=== PATIENT | female | born 1995 | race Hispanic/Latino ===

== ENCOUNTER 2021-08-10 12:17 | Outpatient (CLI) | payer MEDICAID ==
[2021-08-10] MEDS ORDERED: TERBUTALINE 1 MG/1 ML INJ ONE (14:53)
[2021-08-10] MEDS ORDERED: LACTATED RINGERS 1,000 ML ONE ×2 (14:53→17:02)
[2021-08-10] MEDS: TERBUTALINE 1 MG/1 ML INJ SUB-Q SCH ×3 (15:08→18:27)
[2021-08-10 15:34] LABS: Bacteria,Urine 1+ /HPF (Negative); Bilirubin,Urine NEG (Negative); Blood,Urine NEG (Negative); Color,Urine Yellow (Yellow); Mucus,Urine FEW /HPF; Protein,Urine <15 mg/dL mg/dL (Negative); Urobilinogen,Urine < 2.0 mg/dL (<2.0)
[2021-08-10] MEDS ORDERED: cefTRIAXone/NS 1 GM/50 ML 1 GM/50 ML BAG IV ONE (15:50)
[2021-08-10] MEDS ORDERED: ACETAMINOPHEN 500 MG TAB PO ONE (17:35)
--- NOTE | 2021-08-10 17:44 | Ultrasound Report ---
ULTRASOUND OBSTETRIC LIMITED INDICATION / CLINICAL INFORMATION: Cervical length. Clinical Gestational Age (GA) in weeks, days: 23, 5 TECHNIQUE: Transabdominal. Translabial imaging. COMPARISON: None available. FINDINGS: HEART RATE (beats per minute): Twin A = 152; twin B = 177 PRESENTATION: Cephalic. ADDITIONAL FINDINGS: Cervical length is 4.3 cm. IMPRESSION: 1. Cervical length is 4.3 cm. Signer Name: Praanv Shen MD Signed: 08/10/2021 5:40 PM Workstation Name: [id number]
[2021-08-10 18:10] VITALS: BP 116/66
== END 2021-08-10 21:50 | disposition home or self-care (01) ==
LOC: TRG 12:17 → APU 12:18 → TRG 21:50
PROVIDERS: ATTEND Obstetrics & Gynecology
DX: Z34.92 Encounter for supervision of normal pregnancy, unspecified, second trimester (principal); Z3A.23 23 weeks gestation of pregnancy
CPT/HCPCS: 76815; 81001; J0696; J3105; J7120; J3490

== ENCOUNTER 2021-09-28 12:36 | Outpatient (CLI) | payer MEDICAID ==
[2021-09-28 13:22] VITALS: BP 132/68
[2021-09-28 14:52] LABS: Bilirubin,Urine NEG (Negative); Blood,Urine NEG (Negative); Color,Urine Yellow (Yellow); Mucus,Urine FEW /HPF; Protein,Urine <15 mg/dL mg/dL (Negative); Urobilinogen,Urine < 2.0 mg/dL (<2.0)
[2021-09-28] MEDS ORDERED: LACTATED RINGERS 500 ML IV ONE (14:54)
[2021-09-28] MEDS ORDERED: LIDOCAINE (2%) 20 MG/1 ML VIAL 20 ML MDV INFILTRATI ONE (15:58)
[2021-09-28] MEDS ORDERED: LIDOCAINE-MPF (1%) 10 MG/1 ML VIAL 5 ML INFILTRATI ONE (16:17)
== END 2021-09-28 16:55 | disposition home or self-care (01) ==
LOC: TRG 12:36 → APU 12:37 → TRG 16:55
PROVIDERS: ATTEND Obstetrics & Gynecology
DX: O26.893 Other specified pregnancy related conditions, third trimester (principal); R10.9 Unspecified abdominal pain; M54.50 Low back pain, unspecified; Z3A.30 30 weeks gestation of pregnancy
CPT/HCPCS: 59025; 81001; J0696; J3490

== ENCOUNTER 2021-11-05 12:43 | Outpatient (CLI) | payer MEDICAID ==
[2021-11-05 14:47] VITALS: BP 118/70
[2021-11-05] MEDS ORDERED: LACTATED RINGERS 2,000 ML ONE (15:30)
[2021-11-05] MEDS ORDERED: BICITRA ORAL LIQD 30ML PO ONE (15:53)
[2021-11-05] MEDS ORDERED: FAMOTIDINE 20 MG/2 ML INJ IV ONE (15:53)
[2021-11-05] MEDS ORDERED: METOCLOPRAMIDE 10 MG/2 ML INJ IV ONE (15:53)
[2021-11-05] MEDS ORDERED: LACTATED RINGERS 1,000 ML IV SCH ×2 (16:00→18:30)
[2021-11-05] MEDS ORDERED: OXYTOCIN DRIP 30 UNITS/500 ML BAG IV SCH (16:00)
[2021-11-05] MEDS ORDERED: ceFAZolin/Water 2 GM/20 ML 2 GM/20 ML SYRINGE IV NR (16:00)
[2021-11-05 16:53] LABS: Basophils % (Auto) 0.4 % (0.0-1.8); Eosinophils # (Auto) 0.1 K/mm3 (0.0-0.4); Eosinophils % (Auto) 1.1 % (0.0-4.3); Hematocrit 37.4 % (30.3-42.9); Hemoglobin 11.8 gm/dl (10.1-14.3); Lymphocytes # (Auto) 1.9 K/mm3 (1.2-5.4); Lymphocytes % (Auto) 21.3 % (13.4-35.0); Mean Corpuscular HGB Conc 32 % (30-34); Mean Corpuscular Volume 83 fl (79-97); Monocytes # (Auto) 0.7 K/mm3 (0.0-0.8); Monocytes % (Auto) 7.6 % (0.0-7.3); Platelet Count 262 K/mm3 (140-440); Red Blood Count 4.52 M/mm3 (3.65-5.03); Red Cell Distribution Width 14.9 % (13.2-15.2)
[2021-11-05] MEDS ORDERED: MORPHINE 2 MG/1 ML INJ IV ONE (18:19)
[2021-11-05] MEDS ORDERED: ACETAMINOPHEN 325 MG TAB PO PRN (18:21)
[2021-11-05] MEDS ORDERED: ONDANSETRON 4 MG/2 ML INJ IV PRN (18:21)
[2021-11-05] MEDS ORDERED: DOCUSATE SODIUM 100 MG CAP PO PRN (18:21)
[2021-11-05] MEDS ORDERED: SIMETHICONE 80 MG CHEW TAB PO PRN (18:21)
[2021-11-05] MEDS ORDERED: SODIUM CHLORIDE NASAL SPRAY 44ML NS PRN (18:21)
--- NOTE | 2021-11-05 18:46 | History and Physical Report ---
Past History - Obstetrical History : 5 Medications and Allergies Allergies Allergy/AdvReac Type Severity Reaction Status Date / Time Latex, Natural Rubber Allergy Rash Verified 11/26/15 12:26 Home Medications Medication Instructions Recorded Confirmed Last Taken Type No Known Home Medications [No 11/26/15 11/26/15 Unknown History Reported Home Medications] Active Meds: Active Medications Acetaminophen (Acetaminophen 325 Mg Tab) 650 mg PO Q4H PRN PRN Reason: Pain MILD(1-3)/Fever >100.5/BROWN Betamethasone Acet/Betameth SodPhos (Betamet Acet/Betamet Na Ph 6 Mg/Ml Inj 5 Ml Mdv) 12 mg IM Q24H JAH Stop: 11/07/21 10:01 Docusate Sodium (Docusate Sodium 100 Mg Cap) 100 mg PO Q12H PRN PRN Reason: Constipation Lactated Ringer's (Lactated Ringers) 1,000 mls @ 2,250 mls/hr IV PREOP JAH Stop: 11/06/21 16:27 Oxytocin/Sodium Chloride (Pitocin/Ns 30 Unit/500ml) 30 units in 500 mls @ 0 ml s/hr IV TITR JAH; Protocol Cefazolin Sodium (Ancef/Sterile Water 2 Gm/20 Ml) 2 gm in 20 mls @ 80 mls/hr IV PREOP NR; Protocol Stop: 11/06/21 15:59 Lactated Ringer's (Lactated Ringers) 1,000 mls @ 125 mls/hr IV DIRECT JAH Morphine Sulfate (Morphine 4 Mg/1 Ml Inj) 5 mg IM ONCE ONE Stop: 11/05/21 19:01 Multivitamins/Iron/Calcium ( Ayr16-Ji Fumarate-Folic Acid Vit Tab) 1 each PO QDAY JAH Ondansetron HCl (Ondansetron 4 Mg/2 Ml Inj) 4 mg IV Q6H PRN PRN Reason: Nausea And Vomiting Simethicone (Simethicone 80 Mg Chew Tab) 80 mg PO Q6H PRN PRN Reason: Gas pain Sodium Chloride (Sodium Chloride Nasal Clay 44ml) 2 spray NS Q4H PRN PRN Reason: Congestion - Vital Signs Vital signs: Vital Signs Pulse BP 82 118/70 11/05/21 14:46 11/05/21 14:46 Temp Pulse Resp BP Pulse Ox 98.3 F 86 22 118/70 97 11/05/21 14:47 11/05/21 14:47 11/05/21 14:47 11/05/21 14:47 11/05/21 14:47 Results Result Diagrams: 11/05/21 16:15 Abnormal lab results 11/05/21 Range/Units 16:15 MCH 26 L (28-32) pg [place] % (Auto) 7.6 H (0.0-7.3) % All other labs normal.
[2021-11-05] MEDS ORDERED: MORPHINE 4 MG/1 ML INJ IM ONE (19:00)
--- NOTE | 2021-11-05 19:32 | Event Note ---
Date: 11/05/21 Pt offered in hospital observation, but she declined. labor precautions reviewed with patient. She has MFM and OB appts scheduled for next week.
[2021-11-06] MEDS ORDERED: PRENATAL VIT27-FE FUMARATE-FOLIC ACID VIT TAB PO SCH (10:00)
[2021-11-06] MEDS ORDERED: BETAMET ACET/BETAMET NA PH 6 MG/ML INJ 5 ML MDV IM SCH (10:00)
== END 2021-11-05 19:38 | disposition home or self-care (01) ==
LOC: TRG 12:43 → APU 12:44 → TRG 19:38
PROVIDERS: ATTEND Obstetrics & Gynecology
DX: O62.9 Abnormality of forces of labor, unspecified (principal); O30.003 Twin pregnancy, unspecified number of placenta and unspecified number of amniotic sacs, third trimester; Z3A.36 36 weeks gestation of pregnancy
CPT/HCPCS: 36415; 59025; 85025; 86592; 86850; 86900; 86901; 96360